=== PATIENT | male | born 1950 | race Caucasian/White ===

== ENCOUNTER 2017-12-14 09:49 | Inpatient (IN) | payer BC, OTHER ==
--- NOTE | 2017-12-14 09:59 | PDOC ---
History of Present Illness - General Chief Complaint: Nausea/Vomiting Stated Complaint: NAUSEA/VOMITING Time Seen by Provider: 12/14/17 09:58 History Source: Patient - History of Present Illness Initial Comments: 12/14/17 10:32 67 y.o. male with a PMH of aneursym (2004) BIBEMS vertigo. Patient's notes patient could not get out of bed this morning 10/27 to his vertigo prompting her to call 911. Patient states he feels as if both the room and he is spinning. Patient denies any associated chest pain, dyspnea, visual changes or AMS. Patient does endorse some associated lightheadedness. Of note, patient recieves his primary care at the [facility] and notes that he was treated for a UTI and a "prostate infection" last week with three day of IV antibiotics. Patient further notes a 6 month h/o weakness and 20 pound weight loss. ROS is positive for chills. NKDA Surgical: 10/27 to aneursym Social: denies cigarettes, denies alcohol, denies recreational drugs PMD: [facility] Past History - Past Medical History Allergies/Adverse Reactions: Allergies Allergy/AdvReac Type Severity Reaction Status Date / Time fosinopril AdvReac Verified 12/15/17 14:44 lisinopril AdvReac Verified 12/15/17 14:44 Home Medications: Ambulatory Orders Cholecalciferol (Vitamin D3) [Vitamin D3 -] 1,000 unit PO DAILY 12/15/17 Finasteride [Proscar -] 5 mg PO DAILY 12/15/17 Glipizide 10 mg PO BID 12/15/17 Hydrochlorothiazide [Hctz -] 12.5 mg PO DAILY 12/15/17 Losartan Potassium [Cozaar] 100 mg PO DAILY 12/15/17 Metformin HCl [Glucophage] 1,000 mg PO BID 12/15/17 Omeprazole 20 mg PO DAILY 12/15/17 Simvastatin [Zocor] 80 mg PO HS 12/15/17 Tamsulosin HCl [Flomax] 0.4 mg PO DAILY 12/15/17 COPD: No Diabetes: Yes HTN: Yes Other medical history: kidney infection, prostate enlarged - Suicide/Smoking/Psychosocial Hx Smoking History: Never smoked Review of Systems - Review of Systems Constitutional: No: Chills, Fever HEENTM: No: Recent change in vision Respiratory: No: Cough, Shortness of Breath Cardiac (ROS): No: Chest Pain, Edema, Lightheadedness, Palpitations, Syncope ABD/GI: No: Constipated, Diarrhea, Nausea, Vomiting, Abdominal cramping : No: Burning, Dysuria *Physical Exam - Vital Signs Last Vital Signs Temp Pulse Resp BP Pulse Ox 97.6 F 59 L 18 139/74 99 12/14/17 09:55 12/14/17 09:55 12/14/17 09:55 12/14/17 09:55 12/14/17 09:55 - Physical Exam General Appearance: Yes: Nourished, Obese HEENT: positive: EOMI, ADIEL. negative: TM Bulging, TM Dull, TM Erythema Neck: positive: Supple Respiratory/Chest: positive: Lungs Clear, Normal Breath Sounds Cardiovascular: positive: Regular Rhythm, S1, S2. negative: Edema, JVD, Murmur Gastrointestinal/Abdominal: positive: Normal Bowel Sounds, Soft. negative: Distended, Guarding, Rebound, Tenderness, Hernia, Mass Musculoskeletal: positive: Other. negative: Normal Inspection, CVA Tenderness ( R) Extremity: positive: Normal Capillary Refill Integumentary: positive: Normal Color, Dry, Warm Neurologic: positive: fundraising director II-XII NML intact, Fully Oriented, Alert, Motor Strength 5/5 ED Treatment Course - LABORATORY CBC & Chemistry Diagram: 12/15/17 07:30 12/15/17 07:30 Medical Decision Making - Medical Decision Making 12/14/17 21:51 67 y.o. male presents with vertigo that resolved during course of admission. CT Head negative for acute bleed. H/o recent prostate and urinary tract infections. UA significant for WBC 648 and Leukocyte Esterase 3+. Will administer broad spectrum abx and admit to inpatient medicine for further evaluation. *DC/Admit/Observation/Transfer Diagnosis at time of Disposition: UTI (urinary tract infection) - Discharge Dispostion Admit: Yes - Referrals - Patient Instructions - Post Discharge Activity
[2017-12-14 10:34] LABS: BASO % 0.5 % (0-2.0); EOS % 0.6 % (0-4.5); HEMATOCRIT 30.5 % (35.4-49); HEMOGLOBIN 10.4 GM/dL (11.7-16.9); LYMPH % 5.6 % (8-40); MCH 28.2 pg (25.7-33.7); MEAN PLT VOLUME 7.2 fl (7.5-11.1); MONO % 4.7 % (3.8-10.2); NEUT % 88.6 % (42.8-82.8); PLATELET COUNT 419 K/MM3 (134-434); RBC 3.67 M/mm3 (4.00-5.60); WHITE BLOOD COUNT 9.7 K/mm3 (4.0-10.0)
--- NOTE | 2017-12-14 10:40 | PDOC ---
Attending Attestation - HPI HPI: 12/14/17 12:32 The patient is a 67 year old male with a significant PMH of persistent UTI since September, HTN, DM, and aneursym (2004) who was brought in by EMS to the emergency department s/p vertiginous symptoms this morning. The patient's is at bedside and providing history. The patient reports he was unable to get out of the bed this morning because he felt 'the room was spinning.' The patient reports a similar vertiginous episode approximately 5 years ago. The patient is also complaining of difficulty urinating since September. The patient states he was seen at the [facility] and a urologist who told him he had a UTI and prescribed him antibiotics. Of note, the patient reports 20 lb unintended weight loss. The patient denies chest pain, shortness of breath, headache and dizziness. Denies fever, nausea, vomit, diarrhea and constipation. Denies frequency, urgency and hematuria. Allergies: NKA Past surgical history: shunt and coil 2/2 anuerysm Social history: No reported alcohol, drug or cigarette use. PCP: [facility] <Maddison Holland - Last Filed: 12/14/17 12:40> - Resident Resident Name: Gladys Rider - ED Attending Attestation I have performed the following: I have examined & evaluated the patient, The case was reviewed & discussed with the resident, I agree w/resident's findings & plan, Exceptions are as noted - Physicial Exam PE: GENERAL: Awake, alert, and fully oriented, in no acute distress HEAD: No signs of trauma. 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 EYES: PERRLA, EOMI, sclera anicteric, conjunctiva clear ENT: Auricles normal inspection, hearing grossly normal, nares patent, oropharynx clear without exudates. Moist mucosa NECK: Normal ROM, supple, no lymphadenopathy, JVD, or masses LUNGS: Breath sounds equal, clear to auscultation bilaterally. No wheezes, and no crackles HEART: Regular rate and rhythm, normal S1 and S2, no murmurs, rubs or gallops ABDOMEN: Soft, +suprapubic tenderness, normoactive bowel sounds. No guarding, no rebound. No masses EXTREMITIES: Normal range of motion, no edema. No clubbing or cyanosis. No cords, erythema, or tenderness NEUROLOGICAL: Cranial nerves II through XII grossly intact. Normal speech. Motor and sensation intact. SKIN: Warm, Dry, normal turgor, no rashes or lesions noted. - Medical Decision Making Pt with recent history of persistent UTI since September, presenting with vertiginous symptoms this morning. 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 CTH obtained, no acute findings. Will obtain UA/UCx, BCx. Likely admission. <Marisol Hanson - Last Filed: 12/14/17 17:55>
[2017-12-14 11:01] LABS: ALBUMIN 3.3 g/dl (3.4-5.0); ANION GAP 6 (8-16); BILIRUBIN,TOTAL 0.7 mg/dL (0.2-1.0); BLOOD UREA NITROGEN 18 mg/dL (7-18); CALCIUM 9.2 mg/dL (8.5-10.1); CHLORIDE 105 mmol/L (98-107); CO2 29 mmol/L (21-32); GLUCOSE,RANDOM 255 mg/dL (74-106); LIPASE 168 U/L (73-393); MAGNESIUM 2.1 mg/dL (1.8-2.4); POTASSIUM 4.1 mmol/L (3.5-5.1); SGOT/AST 18 U/L (15-37); SGPT/ALT 59 U/L (12-78); SODIUM 140 mmol/L (136-145); TOT PROT 6.9 g/dl (6.4-8.2)
[2017-12-14 11:02] LABS: ALK PHOS 282 U/L (45-117)
[2017-12-14 12:08] LABS: URINE APPEARANCE CLOUDY; URINE BILIRUBIN NEGATIVE (NEGATIVE); URINE BLOOD 2+ (NEGATIVE); URINE COLOR YELLOW; URINE GLUCOSE (UA) 1+ (NEGATIVE); URINE KETONE 2+ (NEGATIVE); URINE NITRITE POSITIVE (NEGATIVE); URINE UROBILINOGEN NEGATIVE mg/dL (0.2-1.0)
[2017-12-14 12:10] LABS: URINE LEUK ESTERASE 3+ (NEGATIVE); URINE PROTEIN 2+ (NEGATIVE)
[2017-12-14 12:14] LABS: URINE BACTERIA MANY /hpf (NONE SEEN); URINE MUCUS FEW
[2017-12-14] MEDS ORDERED: VANCOMYCIN 1,000 MG in DEXTROSE 5%-WATER - 250 ML IVPB ONE (12:49)
[2017-12-14] MEDS ORDERED: PIPERACIL/TAZOB 3.375 GM 3.375 GM/50 ML PREMIX IVPB ONE ×2 (12:50→13:57)
--- NOTE | 2017-12-14 12:51 | HP ---
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 This morning about an hour after waking up, immediately after standing up from sitting, he felt hot , diaphoretic and "like the room was spinning". dizzy/spinning sensation would stop when he closed his eyees. he lied down and symptoms persisted for 1 hr until spontaneous resolution. Patient had a similar episode several yars ago that was self limited. He states that he gets positional dizziness since his brain surgery. For the past month and a half he has been suffering from prostatitis an has been restricting his fluid intake in an attempt to alleviate frequent nocturnal urination. he was [facility] in [place] [facility] [place] for [place] abx followed by a 5 day course of PO abx. he continued to have symptoms and was prescribed a 10 day course of another abx which he finished last . He complains of suprapubic pain, frequency and incomplete emptying but no dysuria or fever. he also reports some weight loss due to poor appetite secondary to nausea ever since he has been on abx as well as transient diarrhea. his last colonoscopy was 10 yrs ago, 1 polyp removed, told to repeat in 10 yrs. Last a1c was 9, 6 mo ago. He denies c/p sob, h.a, weakness/numbness, constipation, melena, hematochezia. ER course was notable for: (1)labs (2)cxr head ct (3)[facility] Recent Travel: denies PAST MEDICAL HISTORY: as above PAST SURGICAL HISTORY:as above Social History: lives with Smoking:denies Alcohol:denies Drugs: denies Family History: Allergies No Known Allergies Allergy (Verified 12/14/17 10:17) HOME MEDICATIONS: Home Medications Medication Instructions Recorded Unobtainable [Unobtainable] 12/14/17 REVIEW OF SYSTEMS CONSTITUTIONAL: Absent: fever HEENT: Absent: rhinorrhea, nasal congestion, throat pain CARDIOVASCULAR: Absent: chest pain, syncope, palpitations RESPIRATORY: Absent: cough, shortness of breath GASTROINTESTINAL: Absent: abdominal distension, vomiting, constipation, melena, hematochezia GENITOURINARY: Absent: dysuria, hematuria, flank pain MUSCULOSKELETAL: Absent: myalgia, arthralgia SKIN: Absent: rash, itching, pallor HEMATOLOGIC/IMMUNOLOGIC: Absent:frequent infections ENDOCRINE: Absent: heat intolerance, cold intolerance NEUROLOGIC: Absent: headache, focal weakness or paresthesias PSYCHIATRIC: Absent: anxiety, depression PHYSICAL EXAMINATION Vital Signs - 24 hr 12/14/17 12/14/17 12/14/17 09:55 10:28 10:40 Temperature 97.6 F 97.1 F L Pulse Rate 59 L Pulse Rate [ Left Radial] Respiratory 18 Rate Blood Pressure 139/74 Blood Pressure [Left Arm] O2 Sat by Pulse 99 97 Oximetry (%) 12/14/17 11:38 Temperature Pulse Rate Pulse Rate [ 56 L Left Radial] Respiratory 22 Rate Blood Pressure Blood Pressure 128/67 [Left Arm] O2 Sat by Pulse 98 Oximetry (%) GENERAL: Awake, alert, and fully oriented, in no acute distress. HEAD: Normal with no signs of trauma. EYES: Pupils equal, round and reactive to light, extraocular movements intact, sclera anicteric, conjunctiva clear. No lid lag. EARS, NOSE, THROAT: Moist mucous membranes. b/l hearing aids, clear tympanic membranes. dhruv hallpike negative. NECK: supple LUNGS: Breath sounds equal, clear to auscultation bilaterally. HEART: Regular rate and rhythm, normal S1 and S2 ABDOMEN: Soft, slightly tender suprapubic area, not distended, normoactive bowel sounds, no guarding, no rebound, no masses. ROX: boggy, enlarged tender prostate MUSCULOSKELETAL:No CVA tenderness. UPPER EXTREMITIES: 2+ pulses, warm, well-perfused. No cyanosis. No clubbing. No peripheral edema. LOWER EXTREMITIES: 2+ pulses, warm, well-perfused. No calf tenderness. No peripheral edema. NEUROLOGICAL: Cranial nerves II-XII intact. strength 5/5 in all extremities, 1 + erflexes patellar and bicep, sensation intact b/l. Normal speech. slightly slowed cognition PSYCHIATRIC: Cooperative. Good eye contact. Appropriate mood and affect. SKIN: Warm, dry, decreased turgor. appears dry Laboratory Results - last 24 hr 12/14/17 12/14/17 12/14/17 10:20 10:20 10:20 WBC 9.7 RBC 3.67 L Hgb 10.4 L Hct 30.5 L MCV 83.0 MCH 28.2 MCHC 34.0 RDW 14.0 Plt Count 419 MPV 7.2 L Neutrophils % 88.6 H Lymphocytes % 5.6 L Monocytes % 4.7 Eosinophils % 0.6 Basophils % 0.5 Sodium 140 Potassium 4.1 Chloride 105 Carbon Dioxide 29 Anion Gap 6 L BUN 18 Creatinine 1.0 Creat Clearance w eGFR > 60 Random Glucose 255 H Lactic Acid 1.0 Calcium 9.2 Magnesium 2.1 Total Bilirubin 0.7 AST 18 ALT 59 Alkaline Phosphatase 282 H Creatine Kinase Troponin I Total Protein 6.9 Albumin 3.3 L Lipase 168 Urine Color Urine Appearance Urine pH Ur Specific [place] Urine Protein Urine Glucose (UA) Urine Ketones Urine Blood Urine Nitrite Urine Bilirubin Urine Urobilinogen Ur Leukocyte Esterase Urine WBC (Auto) Urine RBC (Auto) Urine Bacteria Urine Mucus 12/14/17 12/14/17 10:20 12:00 WBC RBC Hgb Hct MCV MCH MCHC RDW Plt Count MPV Neutrophils % Lymphocytes % Monocytes % Eosinophils % Basophils % Sodium Potassium Chloride Carbon Dioxide Anion Gap BUN Creatinine Creat Clearance w eGFR Random Glucose Lactic Acid Calcium Magnesium Total Bilirubin AST ALT Alkaline Phosphatase Creatine Kinase 31 L Troponin I < 0.02 Total Protein Albumin Lipase Urine Color Yellow Urine Appearance Cloudy Urine pH 5.0 Ur Specific [place] 1.016 Urine Protein 2+ H Urine Glucose (UA) 1+ H Urine Ketones 2+ H Urine Blood 2+ H Urine Nitrite Positive Urine Bilirubin Negative Urine Urobilinogen Negative Ur Leukocyte Esterase 3+ H Urine WBC (Auto) 648 Urine RBC (Auto) 126 Urine Bacteria Many Urine Mucus Few ASSESSMENT/PLAN: This is a 67 yo M with 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 Dizziness, likely Orthostatic -history of water restriction, infection -Ct head unremarkable for acute pathology although part of brain obstructed by could artifact, very low suspicion for neurologic sequale. -dhruv hallpike negative -f/u orthostatic vital signs -NS @ 100 UTI/prostatitits -painful enlarged prostate -f/u urine, blood cultures -IV rocephin -[facility]/abx used -prostate/bladder us r/o abscess -flomax NIDDM -hold PO agents -BGM ISS Hep sq Dispo: adm m/s Problem List - Problem (1) NIDDY (non-insulin dependent diabetes mellitus in young) Code(s): E13.9 - OTHER SPECIFIED DIABETES MELLITUS WITHOUT COMPLICATIONS (2) Prostatitis Code(s): N41.9 - INFLAMMATORY DISEASE OF PROSTATE, UNSPECIFIED (3) UTI (urinary tract infection) Code(s): N39.0 - URINARY TRACT INFECTION, SITE NOT SPECIFIED (4) Complicated UTI (urinary tract infection) Code(s): N39.0 - URINARY TRACT INFECTION, SITE NOT SPECIFIED (5) HTN (hypertension) Code(s): I10 - ESSENTIAL (PRIMARY) HYPERTENSION (6) BPH (benign prostatic hyperplasia) Code(s): N40.0 - BENIGN PROSTATIC HYPERPLASIA WITHOUT LOWER URINRY TRACT SYMP Visit type - Emergency Visit Emergency Visit: Yes ED Registration Date: 12/14/17 Care time: The patient presented to the Emergency Department on the above date and was hospitalized for further evaluation of their emergent condition. - New Patient This patient is new to me today: Yes Date on this admission: 12/14/17 - Critical Care Critical Care patient: No
[2017-12-14] MEDS ORDERED: VANCOMYCIN 1 GRAM (PRE-DOCKED) 1,000 MG/250 ML BAG IVPB ONE (13:15)
[2017-12-14] MEDS ORDERED: PIPERACILLIN/TAZOB 3.375 GM 3.375 GM/50 ML BAG IVPB ONE (13:21)
[2017-12-14] MEDS: SODIUM CHLORIDE 1,000 ML IV SCH (14:26)
--- NOTE | 2017-12-14 14:34 | EKG ---
Test Reason : Blood Pressure : / mmHG Vent. Rate : 056 BPM Atrial Rate : 056 BPM P-R Int : 174 ms QRS Dur : 104 ms QT Int : 414 ms P-R-T Axes : 041 028 011 degrees QTc Int : 399 ms SINUS BRADYCARDIA OTHERWISE NORMAL ECG NO PREVIOUS ECGS AVAILABLE Confirmed by KARINA ESPOSITO MD ([id number]) on 12/14/2017 2:34:04 PM Referred By: Confirmed By:KARINA ESPOSITO MD
[2017-12-14] MEDS ORDERED: CEFTRIAXONE 1 GM in DEXTROSE 5%-WATER - 50 ML IVPB SCH (15:00)
--- NOTE | 2017-12-14 15:25 | PN ---
Teaching Attending Note Name of Resident: Herrera Campos ATTENDING PHYSICIAN STATEMENT I saw and evaluated the patient. I reviewed the resident's note and discussed the case with the resident. I agree with the resident's findings and plan as documented. 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 he was admitted to [place] ER in nov 12 for fatigue and was found to have UTI, given IV abx in ER and sent home on 3 day course of POabx. HE visited his urologist after that and repeat urine studies were done , he was called later and was prescribed 10 day course of abx which he finished a week ago. he now cont to feel tired, he experienced subjective fevers, and chills. he vomited this am . no abd pain, no dysuria , but has discomfort in lower abd with urination. He has BPH and urinates at night , so he has been trying to avoid fluid intake. he feels thirsty and dry . He lost weight in past 2 months due to decreased appetite. Unfortunately, he does not remember the names of any of the Abx he received. today he felt Dizzy ( room spinning) , while getting up form his chair , along with diaphoresis, and minimal shaking /tremor that improved when he lied down and resolved when he got to ER. He denies any weakness, numbness, tingling, change in vision , or dysphagia . He has no dizziness now. OBJECTIVE: NAD, VS reviewed. HEENT: MMM, EOMI, round equal pupils , reactive tolight , no LAP in neck no JVD. CV: RRR, no MRG lungs: CTAB ext: no edema Abd; soft, ND, minimal tenderness in suprapubic area with no CVA tenderness , no rebound tenderness or quarding. Neuro: EOMI, round equal pupils , reactive to light , no facial droop, tongue and uvula at mid oh e. nl facial sensation . strength 5/5 in upper nad lower ext proximally and distally. NL nose to finger . reflexes 2+ knee jerk , 1+ biceps B/l Rectal: done by Criminal Records Technician: enlarged soft prostate with tenderness. 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 unfortunately no previous cx or information about previous treatments. has prostate tenderness on rectal exam but no fluctuation. Not sure if has recurrent infection or partially treated persistent infection due to abscess or short duration of treatment No evidence of pyelonephritis on exam, and has no fever/leukocytosis - received vanco and zosyn in ER - will give Ceftriaxone. No need to cover MRSA and/or pseudomonas unless current cx or previous cx shows so - [facility] [place] [facility] ( U cx , treatment hx, and nay procedures/labs ) - follow urine and blood cx drawn in ER - Transrectal US to r/o abscess given tenderness on exam and 2 month history of UTI treatment . 2- HTN: will bring his med list 3- Dm : hold metformin and glipizide and start SSI 4- Dizziness/vertigo: Neg EVI Riggs neuro exam, happened with changing position form sitting to standing in the setting of UTI, vomiting, and poor po intake indicating orthostatic hypotension from volume depletion. - CT scan reviewed. 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 - f/u with his neuro surgeon Dispo : HLOC due to being on 2 courses of Po abx as out pt, and possible prostatitis
[2017-12-14 15:57] VITALS: BMI 28.9
[2017-12-14] MEDS ORDERED: INSULIN SLIDING SCALE (NOVOLOG) 1 VIAL SQ SCH (16:30)
[2017-12-14] MEDS: INSULIN SLIDING SCALE (NOVOLOG) 1 VIAL SQ SCH (17:15)
--- NOTE | 2017-12-14 19:23 | HP ---
CHIEF COMPLAINT: dizziness PCP: Dr. Delma Russell ([facility]) HISTORY OF PRESENT ILLNESS: Patient is a poor historian and history obtained with the help of his at bedside. 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 The patient has had a UTI for approximately the past month. He was initially treated with inpatient IV antibiotics, then with 5 days of outpatient antibiotics. After the outpatient course, he continued to experience symptoms and returned to his doctor, receiving a 10 day course of a different antibiotic which he finished last . He cannot remember the names of the antibiotics he received. This morning, 1 hour after waking up, the patient experienced an acute onset of dizziness, sweating and shaking chills. He discribed his dizziness episode as feeling unstable. He only felt this sensation when his eyes were open. He was helped to his bed by his , who called 911. This episode lasted approximately 1 hour before resolving spontaneously. The patient had a similar episode of dizziness alone 5 years ago which was treated at the [facility]. He is unable to remember his diagnosis at that time. The patient also complains of a 1 month history of nausea, causing him to have decreased PO intake and to lose weight. The patient endorses urinary hesitancy, urgency and frequency, but no dysuria. He has been restricting his water intake in order to treat his urgency. Patient denies CHest pain, SOB, abdominal pain, fevers at home, recent travel or sick contacts. Patient follows at the [facility] for all of his medical care. ER course was notable for: (1) UA w/ 2+ketones, 2+blood, +nitrite, 3+leukocyte esterase, 648 WBC and many bacteria. (2) CXR negative for acute pathology (3) CT head showing previous coil from aneurysm repair w/ KINDERGARTEN TEACHER ASSISTANT shunt and shrunken ventricles c/w possible overshunting. 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 Quit 20 years ago Alcohol: denies Drugs: denies recent drug use. Patient has never used IV drugs Family History: Diabetes in both mother and father. Allergies No Known Allergies Allergy (Verified 12/14/17 10:17) HOME MEDICATIONS: Home Medications Medication Instructions Recorded Unobtainable [Unobtainable] 12/14/17 REVIEW OF SYSTEMS CONSTITUTIONAL: Absent: loss of appetite HEENT: Absent: rhinorrhea, nasal congestion, throat pain, throat swelling, difficulty swallowing, mouth swelling, ear pain, eye pain, visual changes CARDIOVASCULAR: Absent: chest pain, syncope, palpitations, irregular heart rate, lightheadedness , peripheral edema RESPIRATORY: Absent: cough, shortness of breath, dyspnea with exertion, orthopnea, wheezing, stridor, hemoptysis GASTROINTESTINAL: Absent: abdominal pain, abdominal distension, vomiting, melena, hematochezia GENITOURINARY: Absent: dysuria, hematuria, flank pain, genital pain MUSCULOSKELETAL: Absent: myalgia, arthralgia, joint swelling, back pain, neck pain SKIN: Absent: rash, itching, pallor HEMATOLOGIC/IMMUNOLOGIC: Absent: easy bleeding, easy bruising, lymphadenopathy, frequent infections ENDOCRINE: Absent: unexplained weight gain, unexplained weight loss, heat intolerance, cold intolerance NEUROLOGIC: Absent: headache, focal weakness or paresthesias, unsteady gait, seizure, mental status changes, bladder or bowel incontinence PSYCHIATRIC: Absent: anxiety, depression, suicidal or homicidal ideation, hallucinations. PHYSICAL EXAMINATION Vital Signs - 24 hr 12/14/17 12/14/17 12/14/17 09:55 10:28 10:40 Temperature 97.6 F 97.1 F L Pulse Rate 59 L Pulse Rate [ Left Radial] Pulse Rate [ Right side Sitting] Pulse Rate [ Right side Standing] Pulse Rate [ Right side Supine] Respiratory 18 Rate Blood Pressure 139/74 Blood Pressure [Left Arm] Blood Pressure [Right side Sitting] Blood Pressure [Right side Standing] Blood Pressure [Right side Supine] O2 Sat by Pulse 99 97 Oximetry (%) 12/14/17 12/14/17 12/14/17 11:38 14:30 15:35 Temperature Pulse Rate Pulse Rate [ 56 L 88 Left Radial] Pulse Rate [ 80 Right side Sitting] Pulse Rate [ 91 H Right side Standing] Pulse Rate [ 71 Right side Supine] Respiratory 22 20 Rate Blood Pressure Blood Pressure 128/67 116/66 [Left Arm] Blood Pressure 122/71 [Right side Sitting] Blood Pressure 124/70 [Right side Standing] Blood Pressure 126/66 [Right side Supine] O2 Sat by Pulse 98 100 Oximetry (%) 12/14/17 12/14/17 15:43 16:01 Temperature 98.2 F Pulse Rate 80 Pulse Rate [ Left Radial] Pulse Rate [ Right side Sitting] Pulse Rate [ Right side Standing] Pulse Rate [ Right side Supine] Respiratory 20 Rate Blood Pressure 122/71 Blood Pressure [Left Arm] Blood Pressure [Right side Sitting] Blood Pressure [Right side Standing] Blood Pressure [Right side Supine] O2 Sat by Pulse 100 Oximetry (%) GENERAL: Awake, alert, and fully oriented, in no acute distress. Patient has difficulty remembering recent events and his thought process while answering questions is delayed. Answers all questions appropriately. Patient appears volume depleted. He describes dry mouth and asks for water. HEAD: Normal with no signs of trauma. EYES: Pupils equal, round and reactive to light, extraocular movements intact, sclera anicteric, conjunctiva clear. No lid lag. EARS, NOSE, THROAT: Ears normal, nares patent, oropharynx clear without exudates. moist mucous membranes. NECK: Normal range of motion, supple without lymphadenopathy, JVD, or masses. LUNGS: Breath sounds equal, clear to auscultation bilaterally. No wheezes, and no crackles. No accessory muscle use. HEART: Regular rate and rhythm, normal S1 and S2 without murmur, rub or gallop. ABDOMEN: Soft, not distended, normoactive bowel sounds, no guarding, no rebound , no masses. No hepatomegaly or splenomegaly. There is suprapubic tenderness. The patient is also tender in the left upper and lower quadrant. Bladder can be palpated and feels distended. No CVA tenderness. RECTAL: External hemorrhoids visualized. Good rectal tone. The prostate is enlarged, smooth and tender to palpation. No hugh blood in the rectal vault. LOWER EXTREMITIES: 2+ pulses, warm, well-perfused. No calf tenderness. No peripheral edema. NEUROLOGICAL: Cranial nerves II-X intact. Normal speech. Strength 5/5 b/l in both upper and lower limbs. Reflexes 1+ at knee and biceps. Sutherland-Hallpike maneuver fails to reproduce dizziness. Sitting up quickly during maneuver elicits dizziness. SKIN: Warm, dry, normal turgor, no rashes or lesions noted, normal capillary refill. Laboratory Results - last 24 hr 12/14/17 12/14/1712/14/18 10:20 10:20 10:20 WBC 9.7 RBC 3.67 L Hgb 10.4 L Hct 30.5 L MCV 83.0 MCH 28.2 MCHC 34.0 RDW 14.0 Plt Count 419 MPV 7.2 L Neutrophils % 88.6 H Lymphocytes % 5.6 L Monocytes % 4.7 Eosinophils % 0.6 Basophils % 0.5 Sodium 140 Potassium 4.1 Chloride 105 Carbon Dioxide 29 Anion Gap 6 L BUN 18 Creatinine 1.0 Creat Clearance w eGFR > 60 POC Glucometer Random Glucose 255 H Lactic Acid 1.0 Calcium 9.2 Magnesium 2.1 Total Bilirubin 0.7 AST 18 ALT 59 Alkaline Phosphatase 282 H Creatine Kinase Troponin I Total Protein 6.9 Albumin 3.3 L Lipase 168 Urine Color Urine Appearance Urine pH Ur Specific [place] Urine Protein Urine Glucose (UA) Urine Ketones Urine Blood Urine Nitrite Urine Bilirubin Urine Urobilinogen Ur Leukocyte Esterase Urine WBC (Auto) Urine RBC (Auto) Urine Bacteria Urine Mucus 12/14/17 12/14/17 12/14/17 10:20 12:00 16:50 WBC RBC Hgb Hct MCV MCH MCHC RDW Plt Count MPV Neutrophils % Lymphocytes % Monocytes % Eosinophils % Basophils % Sodium Potassium Chloride Carbon Dioxide Anion Gap BUN Creatinine Creat Clearance w eGFR POC Glucometer 235 Random Glucose Lactic Acid Calcium Magnesium Total Bilirubin AST ALT Alkaline Phosphatase Creatine Kinase 31 L Troponin I < 0.02 Total Protein Albumin Lipase Urine Color Yellow Urine Appearance Cloudy Urine pH 5.0 Ur Specific [place] 1.016 Urine Protein 2+ H Urine Glucose (UA) 1+ H Urine Ketones 2+ H Urine Blood 2+ H Urine Nitrite Positive Urine Bilirubin Negative Urine Urobilinogen Negative Ur Leukocyte Esterase 3+ H Urine WBC (Auto) 648 Urine RBC (Auto) 126 Urine Bacteria Many Urine Mucus Few ASSESSMENT/PLAN: The patient is a 67 yo m w/ PMH refractory UTI and DM who is being admitted for treatment and further workup of UTI and dizziness. #Dizziness likely 2/2 orthostatic hypotension -orthostatic vital signs -IVF -monitor symptoms #Refractory UTI w/ prostate enlargement/tenderness -s/p Vancomycin, Zosyn in ED -exact antibiotic history and timing unclear; will reach out to [facility] for records -Ceftriaxone 1gm daily beginning this PM -Flomax -f/u BCX -f/u UCX -transabdominal ultrasound of the prostate r/o abscess #DM -BGM ACHS -ISS ACHS #HTN -normotensive at this time. -home meds unknown; patient uses [facility] pharmacy -placed call to [facility]; they will not release records until formal consent and request made. -filed request, will f/u #FEN -NS @ 100 -lytes WNL -diabetic/sodium controlled diet #Prophy -Hep SQ 5Ku TID #Dispo -Admit to med-surg Problem List - Problem (1) Diabetes mellitus Code(s): E11.9 - TYPE 2 DIABETES MELLITUS WITHOUT COMPLICATIONS Qualifiers: Diabetes mellitus type: type 2 Diabetes mellitus complication status: without complication (2) BPH (benign prostatic hyperplasia) Code(s): N40.0 - BENIGN PROSTATIC HYPERPLASIA WITHOUT LOWER URINRY TRACT SYMP Qualifiers: Lower urinary tract symptom presence: symptoms present Lower urinary tract symptom detail: urinary frequency Qualified Code(s): N40.1 - Benign prostatic hyperplasia with lower urinary tract symptoms; R35.0 - Frequency of micturition ; R35.0 - Frequency of micturition (3) Complicated UTI (urinary tract infection) Code(s): N39.0 - URINARY TRACT INFECTION, SITE NOT SPECIFIED (4) HTN (hypertension) Code(s): I10 - ESSENTIAL (PRIMARY) HYPERTENSION Visit type - Emergency Visit Emergency Visit: Yes ED Registration Date: 12/14/17 Care time: The patient presented to the Emergency Department on the above date and was hospitalized for further evaluation of their emergent condition. - New Patient This patient is new to me today: Yes Date on this admission: 12/14/17 - Critical Care Critical Care patient: No Hospitalist Screening - Colonoscopy Questionnaire Colonoscopy Questionnaire: Colonoscopy Questionnaire - Patient: 50 - 75 years old and never had a screening colonoscopy: No History of colon or rectal polyps, or CA: Yes History of IBD, Crohn's disease or UC: No History of abdominal radiation therapy as a child: No - Relative: 1 with colon or rectal CA, or polyps at age 60 or younger: No Colon or rectal CA diagnosed at age 45 or younger: No Multiple relatives with colon or rectal CA: No - Outcome: Screening Result: Positive Screen
[2017-12-14] MEDS ORDERED: CEFTRIAXONE 1 GM in DEXTROSE 5%-WATER - 50 ML IVPB ONE (20:00)
[2017-12-14] MEDS ORDERED: cefTRIAXone SODIUM 1 GM VIAL ONE (20:42)
[2017-12-14] MEDS ORDERED: DEXTROSE 5%-WATER - 50 ML IVPB ONE (20:44)
[2017-12-14] MEDS: HEPARIN NA (PORCINE) 5,000 UNITS/ML 1ML VIAL SQ SCH (21:14)
[2017-12-15] MEDS: HEPARIN NA (PORCINE) 5,000 UNITS/ML 1ML VIAL SQ SCH ×3 (06:11→21:10)
[2017-12-15] MEDS: INSULIN SLIDING SCALE (NOVOLOG) 1 VIAL SQ SCH ×3 (06:11→17:16)
[2017-12-15] MEDS: TAMSULOSIN HCL 0.4 MG CAP.ER.24H (FP) PO SCH (08:08)
[2017-12-15 08:20] LABS: BASO % 0.5 % (0-2.0); EOS % 1.5 % (0-4.5); HEMATOCRIT 29.7 % (35.4-49); HEMOGLOBIN 10.1 GM/dL (11.7-16.9); LYMPH % 9.1 % (8-40); MCH 28.1 pg (25.7-33.7); MEAN CELL VOLUME 82.7 fl (80-96); MEAN PLT VOLUME 7.2 fl (7.5-11.1); MONO % 5.9 % (3.8-10.2); PLATELET COUNT 392 K/MM3 (134-434); RBC 3.59 M/mm3 (4.00-5.60); RDW 13.9 % (11.9-15.9); WHITE BLOOD COUNT 9.2 K/mm3 (4.0-10.0)
[2017-12-15 08:55] LABS: CHLORIDE 105 mmol/L (98-107); POTASSIUM 4.1 mmol/L (3.5-5.1); SODIUM 141 mmol/L (136-145)
[2017-12-15 09:05] LABS: ALK PHOS 226 U/L (45-117); ANION GAP 7 (8-16); BILIRUBIN,TOTAL 0.4 mg/dL (0.2-1.0); BLOOD UREA NITROGEN 13 mg/dL (7-18); CALCIUM 8.6 mg/dL (8.5-10.1); CO2 29 mmol/L (21-32); GLUCOSE,RANDOM 154 mg/dL (74-106); MAGNESIUM 2.1 mg/dL (1.8-2.4); PHOSPHOROUS 3.1 mg/dL (2.5-4.9); SGOT/AST 24 U/L (15-37); SGPT/ALT 48 U/L (12-78); TOT PROT 6.3 g/dl (6.4-8.2)
[2017-12-15] MEDS ORDERED: PT OWN MED DRAWER 7, Y5N ONE (10:01)
[2017-12-15] MEDS: CEFTRIAXONE 2 GM in DEXTROSE 5%-WATER - 100 ML IVPB SCH (10:10)
--- NOTE | 2017-12-15 14:20 | PN ---
Teaching Attending Note Name of Resident: Gabrielle Good ATTENDING PHYSICIAN STATEMENT I saw and evaluated the patient. I reviewed the resident's note and discussed the case with the resident. I agree with the resident's findings and plan as documented. SUBJECTIVE: No fever or chills. has no abd pain, has no . 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 ? passed a stone this am . - cont cecftriaxone - await blood and urine cx - US reviwed . - [facility] . - cont IVF will stop in am 2- HTN: will bring his med list 3- DM : hold metformin and glipizide and start SSI 4- Dizziness/vertigo:resolved, no orthostatic hypotension . 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
[2017-12-15] MEDS: SODIUM CHLORIDE 1,000 ML IV SCH ×2 (14:39→19:13)
--- NOTE | 2017-12-15 16:29 | PN ---
Physical Exam: SUBJECTIVE: Patient seen and examined ; states passed "stone" after urinating last night; stated was corn size; pink; after passing of substance he states his dysuria was gone. NO fevers, chills, urine yellow and clear. OBJECTIVE: Vital Signs Period Temp Pulse Resp BP Sys/[place] Pulse Ox Last 24 Hr 98 F-98.5 F 61-78 18-20 104-126/58-77 98-98 GENERAL: The patient is awake, alert, and fully oriented, in no acute distress. LUNGS: Breath sounds equal, clear to auscultation bilaterally, no wheezes, no crackles, no accessory muscle use. HEART: Regular rate and rhythm, S1, S2 without murmur, rub or gallop. ABDOMEN: Soft, nontender, nondistended, normoactive bowel sounds, no guarding, no rebound, no hepatosplenomegaly, no masses. EXTREMITIES: 2+ pulses, warm, well-perfused, no edema. Laboratory Results - last 24 hr 12/14/17 12/15/17 12/15/17 16:50 06:09 07:30 WBC 9.2 RBC 3.59 L Hgb 10.1 L Hct 29.7 L MCV 82.7 MCH 28.1 MCHC 34.0 RDW 13.9 Plt Count 392 MPV 7.2 L Neutrophils % 83.0 H Lymphocytes % 9.1 D Monocytes % 5.9 Eosinophils % 1.5 D Basophils % 0.5 Sodium Potassium Chloride Carbon Dioxide Anion Gap BUN Creatinine Creat Clearance w eGFR POC Glucometer 235 175 Random Glucose Calcium Phosphorus Magnesium Total Bilirubin AST ALT Alkaline Phosphatase Total Protein Albumin 12/15/17 12/15/17 07:30 11:32 WBC RBC Hgb Hct MCV MCH MCHC RDW Plt Count MPV Neutrophils % Lymphocytes % Monocytes % Eosinophils % Basophils % Sodium 141 Potassium 4.1 Chloride 105 Carbon Dioxide 29 Anion Gap 7 L BUN 13 D Creatinine 1.0 Creat Clearance w eGFR > 60 POC Glucometer 234 Random Glucose 154 H D Calcium 8.6 Phosphorus 3.1 Magnesium 2.1 Total Bilirubin 0.4 D AST 24 D ALT 48 Alkaline Phosphatase 226 H Total Protein 6.3 L Albumin 3.0 L Active Medications Generic Name Dose Route Start Last Admin Trade Name Freq PRN Reason Stop Dose Admin Heparin Sodium (Porcine) 5,000 unit 12/14/17 22:00 12/15/17 14:39 Heparin - SQ 5,000 unit TID MIO Administration Sodium Chloride 1,000 mls @ 100 mls/hr 12/14/17 14:15 12/15/17 14:39 Normal Saline - IV 100 mls/hr ASDIR MIO Administration Ceftriaxone Sodium 2 gm/ 100 mls @ 200 mls/hr 12/15/17 10:00 12/15/17 10:10 Dextrose IVPB 200 mls/hr DAILY MIO Administration Insulin Aspart 1 vial 12/14/17 16:30 12/15/17 11:43 Novolog Vial Sliding Scale - SQ 4 units TIDAC MIO Administration Protocol Tamsulosin HCl 0.4 mg 12/15/17 08:30 12/15/17 08:08 Flomax - PO 0.4 mg DAILY@0830 MIO Administration ASSESSMENT/PLAN: This is a 67 year old male who presented with dizziness was founf to have complicated UTI. 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 Aj Good- PGY2 Visit type - Emergency Visit Emergency Visit: Yes ED Registration Date: 12/14/17 Care time: The patient presented to the Emergency Department on the above date and was hospitalized for further evaluation of their emergent condition. - New Patient This patient is new to me today: Yes Date on this admission: 12/15/17 - Critical Care Critical Care patient: No
[2017-12-16] MEDS: HEPARIN NA (PORCINE) 5,000 UNITS/ML 1ML VIAL SQ SCH ×2 (05:52→13:08)
[2017-12-16] MEDS: SODIUM CHLORIDE 1,000 ML IV SCH (05:54)
[2017-12-16] MEDS: INSULIN SLIDING SCALE (NOVOLOG) 1 VIAL SQ SCH ×3 (06:27→17:09)
[2017-12-16 08:07] LABS: BASO % 0.4 % (0-2.0); EOS % 2.1 % (0-4.5); HEMATOCRIT 28.7 % (35.4-49); HEMOGLOBIN 9.9 GM/dL (11.7-16.9); LYMPH % 10.1 % (8-40); MCH 28.7 pg (25.7-33.7); MCHC 34.4 g/dl (32.0-35.9); MEAN CELL VOLUME 83.4 fl (80-96); MEAN PLT VOLUME 7.1 fl (7.5-11.1); MONO % 7.2 % (3.8-10.2); NEUT % 80.2 % (42.8-82.8); PLATELET COUNT 401 K/MM3 (134-434); RBC 3.44 M/mm3 (4.00-5.60); RDW 14.2 % (11.9-15.9); WHITE BLOOD COUNT 8.1 K/mm3 (4.0-10.0)
[2017-12-16 08:48] LABS: CHLORIDE 107 mmol/L (98-107); SODIUM 143 mmol/L (136-145)
[2017-12-16 08:55] LABS: ANION GAP 11 (8-16); BLOOD UREA NITROGEN 12 mg/dL (7-18); CALCIUM 8.3 mg/dL (8.5-10.1); CO2 25 mmol/L (21-32); CREATININE 0.9 mg/dL (0.7-1.3); GLUCOSE,RANDOM 176 mg/dL (74-106)
[2017-12-16] MEDS: TAMSULOSIN HCL 0.4 MG CAP.ER.24H (FP) PO SCH (09:18)
[2017-12-16] MEDS: CEFTRIAXONE 2 GM in DEXTROSE 5%-WATER - 100 ML IVPB SCH (09:19)
--- NOTE | 2017-12-16 13:39 | PN ---
Teaching Attending Note Name of Resident: Herrera Campos ATTENDING PHYSICIAN STATEMENT I saw and evaluated the patient. I reviewed the resident's note and discussed the case with the resident. I agree with the resident's findings and plan as documented. SUBJECTIVE: No fever or chills, has no abd pain. no dysuria. 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 passed a stone yesterday. sx are better and exam has improved . cx with bueno-sensitive E coli. US with no hydro can switch to po , ABx. d/w felipe Murphy ill do bactrim BID x 4-6 weeks. will give a script for 2 weeks with blood work q week . if tolerated the treatment will be extended with same medication otherwise it has to be changed. 2- HTN: on HCTZ /losartan. with his h/o BPH and frequent urination , forcing him to avoid fluid intake, and now a kidney stone , will avoid HCTZ and give prescription for losartan only . 3- DM : cont metformin and glipizide at dc 4- H/o MANAGER INSPECTION shunt , - f/u with his neuro surgeon as out pt for possible overshunting on CT scan 5- BPH : cont finasteride and flomax at dc dc to home . at bed side .
--- NOTE | 2017-12-16 13:41 | PN ---
Progress Note (short form) - Note Progress Note: ID consult dictated imp/reccd ecoli UTI 3rd episode of UTI since September bueno sensitive had sensation of discomfort when sitting in a chair that has resolve may have passed a stone too! hospitalist reports tender prostate on exam recent addition of proscar to his flomax Ecoi UTI suspect prostatitis renal sonogram-to r/o hydronephrosis po bactrim for prostatis- ideally 4 to 6 weeks would continue 2 weeks to f/u with PMD and urologist who can lengthen duration of treatment as needed needs labs followed cbc/bmp while on bactrim d/w hospitalst
[2017-12-16 14:00] VITALS: BP 115/51; PULSE 69; TEMP 98.9
--- NOTE | 2017-12-16 15:45 | CONS ---
INFECTIOUS DISEASE CONSULTATION DATE OF CONSULTATION: DATE OF DICTATION: 12/16/2017 Requested by the hospitalist service. This is a 67-year-old man with a history of a cerebral aneurysm in 2004, status post clip and shunt. He has a history of BPH on Flomax for over a year. He is followed at the [facility]. He recently had an episode of difficulty urinating. He went to the [facility], where he was given IV antibiotics and discharged on oral antibiotics for 3 to 5 days. He continued to have symptoms. He then received a 10-day course of Macrobid. He was also started on Proscar at this time. He comes to the hospital on December 14 with complaint of vertigo. He was also noted to have suprapubic pain and frequency, but no fevers. He was found to have dysuria. On prostate exam, he was noted to have a tender, enlarged prostate. His UA was notable for 3+ leukocytes with 648 white cells. Urine culture grew an E coli. I am asked to see him to comment on duration of antibiotic treatment. Patient reports that he was having difficulty sitting in a chair and this has resolved completely. He is not having any trouble moving his bowels. He does note as well that he may have passed a stone. He gives a remote history of nephrolithiasis in the past. PAST MEDICAL HISTORY: Notable for history of ruptured cerebral aneurysm; [id number] diabetes; hypertension; BPH. 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 ALLERGIES: He has no known drug allergies. HOME MEDICATIONS: Include losartan, hydrochlorothiazide, vitamin D, Flomax, Glucophage, Proscar, omeprazole, glipizide, and Zocor. He is followed by a Dr. Delma Rivera at the [facility]. He states, as well, he has seen a urologist once and has a followup appointment in December. He has never had a prostate biopsy in the past. SOCIAL HISTORY: He lives at home with his . No history of cigarette, alcohol or substance use. REVIEW OF SYSTEMS: Currently, he feels well. His suprapubic discomfort has resolved. His perineal discomfort has resolved and he feels well. PHYSICAL EXAMINATION: Vital signs: Temp is 98.5, pulse is 75, blood pressure 127/61, respiratory rate is 18. HEENT: He is normocephalic. His eyes are anicteric. Neck: Supple. Lungs: Clear to auscultation. Heart: Regular rate and rhythm. Abdomen: Soft. Nontender. He has no suprapubic or CVA tenderness. Extremities: Without edema. White count is 8.1, hemoglobin 9.9, platelets are 401. BUN and creatinine are 12 and 0.9. His UA has 3+ leukocytes with 648 white cells. Blood cultures are negative. Urine culture is growing an E coli that is pansensitive. He had a bladder sonogram that shows an enlarged prostate with no discrete collection. In summary, this is a 67-year-old man with E coli UTI. I suspect acute prostatitis, based on his difficulty sitting and the tender prostate exam per the hospitalist. Would obtain a renal ultrasound just to rule out hydronephrosis. If indeed he did pass a stone, I would switch him to oral Bactrim for 2 weeks, to follow up with his PMD and urologist who can lengthen duration of treatment as needed. Ideally, he should have 4 to 6 weeks of treatment, but he needs to be followed carefully with CBC and BMP while on long-term Bactrim and this should be done by his primary care doctor. The case was discussed at length with the hospitalist. LOWELL AWAD M.D. [id number]
--- NOTE | 2017-12-17 15:58 | DS ---
Physical Exam: SUBJECTIVE: Patient seen and examined at bedside. Patient feels and looks much better today. He states that his urinary symptoms have resolved. PHYSICAL EXAM GENERAL: The patient is awake, alert, and fully oriented, in no acute distress. NECK: Trachea midline, full range of motion, supple. LUNGS: Breath sounds equal, clear to auscultation bilaterally, no wheezes, no crackles, no accessory muscle use. HEART: Regular rate and rhythm, S1, S2 without murmur, rub or gallop. ABDOMEN: Soft, nontender, nondistended, normoactive bowel sounds, no guarding, no rebound, no hepatosplenomegaly, no masses. EXTREMITIES: 2+ pulses, warm, well-perfused, no edema. NEUROLOGICAL: Cranial nerves II through X grossly intact. Normal speech, gait not observed. SKIN: Warm, dry, normal turgor, no rashes or lesions noted. 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 The patient stated that he had had urinary symptoms of urgency and hesitancy for approximately one month prior to admission. He was treated with inpatient IV antibiotics at the [facility], then with 5 days of outpatient antibiotics by his primary care physician. After the outpatient course, he continued to experience symptoms and returned to his doctor, receiving a 10 day course of a different antibiotic which he finished the prior to admission. The morning prior to admission he experienced an acute onset of dizziness, disequilibrium, sweating and shaking chills. He was helped to his bed by his , who called 911. The patient endorsed restricting his water intake to help treat his urinary symptoms as well as his nocturia. The patient denied chest pain, shortness of breath, fevers or sick contacts at the time. In he ED, he was found to have a UA w/ 3+ketones, 2+ blood , 3+ leukocyte esterase, +nitrite, 648 WBC and many bacteria. A rectal exam revealed an enlarged, smooth prostate which was tender to palpation. A bladder ultrasound revealed a markedly enlarged prostate and was negative for any collection or abscess. A CT of the head revealed no acute findings, but incidentally noted decreased ventricle volume concerning for possible overshunting into the abdomen. The patient was admitted for further management of a urinary tract infection. He was treated with Ceftriaxone and Flomax. His diabetes was managed with a Novolog sliding scale. The remainder of his chronic medical problems were managed with his home medications. The patient's symptoms improved with this treatment and he was discharged home with Bactrum DS BID for an additional 28 days. He was advised to obtain weekly blood tests while on Bactrim. He was given a prescription for his first blood work with his discharge papers and advised to follow up with his PCP, Dr. Rivera to obtain the remaining blood tests. His hydrochlorothiazide was stopped He was also advised to follow up with his urologist regarding his prostate and his neurosurgeon regarding the possible overshunting in his brain. Date of Discharge: 12/16/17 Minutes to complete discharge: 56 Discharge Summary Reason For Visit: UTI Condition: Improved - Instructions Diet, Activity, Other Instructions: You were admitted for the treatment of your urinary tract infection. You will need to take an antibiotic for a total of four to six weeks. We are prescribing you an antibiotic called bactrim. You should take 1 tablet of this medication twice per day. While on this medication we want to monitor your kidney function and response to infection. You can follow up with your primary Dr. Rivera or our [facility] resident clinic (referral provided) with in one week for blood work. We have provided you with a script to get your blood work done. You will need to get blood work once a week while on antibiotics. If your kidney function is normal, you can continue taking the antibiotic Bactrim, if your kidney functioning levels are abnormal we will switch your antibiotic to another one. In any case you will need a total of four to six weeks of antibiotic medication. After 2 weeks, the antibiotics need to be renewed by your PCP , to continue bactrim or switch to another agent. We would also like you to follow up with your neurosurgeon regarding the shunt. Our head imaging, CT scan indicated possible overshunting. You may resume taking your home medications starting tomorrow. Be advised that we have stopped your hydrochlorothiazide medication, ase these can cause kidney stones. We will prescribe your losartan as a separate medication. Please take as prescribed. If you begin to experience chest pain, shortness of breath, worsening dizziness or if any of your symptoms become worse, please call your doctor or return to the emergency department. Please take discharge paperwork with you to all your appointments. Referrals: Farhan Mooney MD [Staff Physician] - 1 Week Herrera Campos RES [Resident] - Hien Orlando MD [Staff Physician] - Rashel Man MD [Staff Physician] - 1 Week Disposition: HOME - Home Medications Comprehensive Discharge Medication List: Ambulatory Orders Cholecalciferol (Vitamin D3) [Vitamin D3 -] 1,000 unit PO DAILY 12/15/17 Finasteride [Proscar -] 5 mg PO DAILY 12/15/17 Glipizide 10 mg PO BID 12/15/17 Metformin HCl [Glucophage] 1,000 mg PO BID 12/15/17 Omeprazole 20 mg PO DAILY 12/15/17 Simvastatin [Zocor] 80 mg PO HS 12/15/17 Tamsulosin HCl [Flomax -] 0.4 mg PO DAILY 12/15/17 Losartan Potassium 100 mg PO DAILY #30 tablet 12/16/17 Miscellaneous Drug Not In Syst [Outpatient Lab Test] 1 each ASDIR #1 misc Sulfamethoxazole/Trimethoprim [Bactrim Ds -] 1 tab PO BID #56 tablet 12/16/17 Problem List - Problems (1) Diabetes mellitus Code(s): E11.9 - TYPE 2 DIABETES MELLITUS WITHOUT COMPLICATIONS Qualifiers: Diabetes mellitus type: type 2 Diabetes mellitus complication status: without complication (2) BPH (benign prostatic hyperplasia) Code(s): N40.0 - BENIGN PROSTATIC HYPERPLASIA WITHOUT LOWER URINRY TRACT SYMP Qualifiers: Lower urinary tract symptom presence: symptoms present Lower urinary tract symptom detail: urinary frequency Qualified Code(s): N40.1 - Benign prostatic hyperplasia with lower urinary tract symptoms; R35.0 - Frequency of micturition ; R35.0 - Frequency of micturition (3) Complicated UTI (urinary tract infection) Code(s): N39.0 - URINARY TRACT INFECTION, SITE NOT SPECIFIED (4) HTN (hypertension) Code(s): I10 - ESSENTIAL (PRIMARY) HYPERTENSION This patient is new to me today: No Emergency Visit: Yes ED Registration Date: 12/14/17 Care time: The patient presented to the Emergency Department on the above date and was hospitalized for further evaluation of their emergent condition. Critical Care patient: No - Discharge Referral Referred to [facility] No
== END 2017-12-16 18:00 | disposition home or self-care (01) | DRG 690 ==
LOC: JER 09:49 → JERBED 13:02 → OBSVTOIN 14:44 → J6S 14:55
PROVIDERS: ADMIT Internal Medicine; ATTEND Internal Medicine
DX: N39.0 Urinary tract infection, site not specified (principal); B96.29 Other Escherichia coli [E. coli] as the cause of diseases classified elsewhere; E11.9 Type 2 diabetes mellitus without complications; I10 Essential (primary) hypertension; I95.1 Orthostatic hypotension; N41.9 Inflammatory disease of prostate, unspecified; N40.0 Benign prostatic hyperplasia without lower urinary tract symptoms; Z79.84 Long term (current) use of oral hypoglycemic drugs
CPT/HCPCS: 36415; 70450-TC; 71045-TC-FY; 76775-TC; 76856-TC; 80048; 80053; 81003; 81015; 82550; 82962; 83605; 83690; 83735; 84100; 84484; 85025; 87040; 87086; 87186; 93005; 93010; 97116-GP; 97161-GP; 99285-25; G0378; J1644; J7030

== ENCOUNTER 2018-02-19 11:18 | Emergency (ER) | payer BC, OTHER ==
[2018-02-19 11:48] LABS: BASO % 0.5 % (0-2.0); EOS % 0.9 % (0-4.5); HEMATOCRIT 38.1 % (35.4-49); HEMOGLOBIN 12.5 GM/dL (11.7-16.9); LYMPH % 15.9 % (8-40); MCH 28.1 pg (25.7-33.7); MCHC 32.8 g/dl (32.0-35.9); MEAN CELL VOLUME 85.7 fl (80-96); MEAN PLT VOLUME 8.2 fl (7.5-11.1); MONO % 5.2 % (3.8-10.2); NEUT % 77.5 % (42.8-82.8); PLATELET COUNT 248 K/MM3 (134-434); RBC 4.45 M/mm3 (4.00-5.60); RDW 13.4 % (11.9-15.9); WHITE BLOOD COUNT 5.6 K/mm3 (4.0-10.0)
[2018-02-19 11:53] VITALS: BMI 27.2
[2018-02-19 11:53] LABS: URINE APPEARANCE CLEAR; URINE BILIRUBIN NEGATIVE (<2.0 mg/dL); URINE COLOR LTYELLOW; URINE GLUCOSE (UA) 1+ (NEGATIVE); URINE KETONE TRACE (NEGATIVE); URINE LEUK ESTERASE NEGATIVE (NEGATIVE); URINE NITRITE NEGATIVE (NEGATIVE); URINE UROBILINOGEN NEGATIVE mg/dL (0.2-1.0)
[2018-02-19 12:02] LABS: URINE PROTEIN 3+ (NEGATIVE)
[2018-02-19 12:08] LABS: INR 0.88 (0.82-1.09)
[2018-02-19 12:10] LABS: ACTIVATED PTT 23.7 SECONDS (26.9-34.4)
[2018-02-19 12:14] LABS: COCAINE, UR NEGATIVE ng/ml (CUTOFF=300); METHADONE, UR NEGATIVE ng/ml (CUTOFF=300); OPIATES, URI NEGATIVE ng/ml (CUTOFF=300); PHENCYCLIDINE,URINE NEGATIVE ng/ml (CUTOFF=25); URINE AMPHETAMINES NEGATIVE ng/ml (CUTOFF=500); URINE BARBITURATES NEGATIVE ng/ml (CUTOFF=200); URINE BENZODIAZEPINES POSITIVE ng/ml (CUTOFF=200)
[2018-02-19 12:18] LABS: ALK PHOS 66 U/L (45-117); ANION GAP 14 (8-16); BILIRUBIN,TOTAL 0.4 mg/dL (0.2-1.0); BLOOD UREA NITROGEN 16 mg/dL (7-18); CALCIUM 8.1 mg/dL (8.5-10.1); CHLORIDE 108 mmol/L (98-107); CO2 17 mmol/L (21-32); CREATININE 1.2 mg/dL (0.7-1.3); GLUCOSE,RANDOM 233 mg/dL (74-106); POTASSIUM 4.2 mmol/L (3.5-5.1); SGOT/AST 13 U/L (15-37); SGPT/ALT 25 U/L (12-78); SODIUM 139 mmol/L (136-145); TOT PROT 7.1 g/dl (6.4-8.2)
--- NOTE | 2018-02-19 12:23 | PDOC ---
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 Patient and daughter at bedside to assist in report. State that patient was in normal state of health this morning. Pt. woke up at 0500, , made breakfast, read newspaper and went back to sleep around 0900 consistent with daily routine. states that patient became rigid and started exhibiting what was described as tonic-clonic convulsions for 5-10 minutes, while laying in bed. Patient with tongue biting and blood draining from mouth. attempted tongue sweep with her hand and sustained bite wound to finger. Laid patient on lateral decubitus side and patient convulsions improved. Patinet became acutely agitated on EMS arrival and received 10 mg Versed. 90% O2 RA, improved to 99% with NC. Family denies hearing complaints from pt. about F/C, N/V, CP, SOB, abdominal pain, diarrhea, constipation, urinary complaints, weakness, lightheadedness, sensory changes. PMHx: as noted above. Dr. Story Neurosurgery performed shunt placement 14 years ago. ROS: as noted above SHx: Family denies Etoh, tobacco, or IVDA. Past History - Past Medical History Allergies/Adverse Reactions: Allergies Allergy/AdvReac Type Severity Reaction Status Date / Time fosinopril AdvReac Verified 12/15/17 14:44 lisinopril AdvReac Verified 12/15/17 14:44 Home Medications: Ambulatory Orders Cholecalciferol (Vitamin D3) [Vitamin D3 -] 1,000 unit PO DAILY 12/15/17 Finasteride [Proscar -] 5 mg PO DAILY 12/15/17 Glipizide 10 mg PO BID 12/15/17 Metformin HCl [Glucophage] 1,000 mg PO BID 12/15/17 Simvastatin [Zocor] 80 mg PO HS 12/15/17 Tamsulosin HCl [Flomax -] 0.4 mg PO DAILY 12/15/17 Losartan Potassium 100 mg PO DAILY #30 tablet 12/16/17 Sulfamethoxazole/Trimethoprim [Bactrim Ds -] 1 tab PO BID #56 tablet 12/16/17 L.acidoph,Paracasei, B.lactis [Probiotic] 1 each PO ASDIR 02/19/18 Multivit with Iron,Minerals [Complete Senior] 1 each PO DAILY 02/19/18 Tamsulosin HCl 0.4 mg PO DAILY 02/19/18 COPD: No Diabetes: Yes HTN: Yes - Surgical History Neurologic Surgery: Yes (s/p brain aneurysm 13yrs ago.SOFTWARE DEVELOPMENT INTERN shunt in left side.) - Suicide/Smoking/Psychosocial Hx Smoking History: Unknown if ever smoked Have you smoked in the past 12 months: No Information on smoking cessation initiated: No Hx Alcohol Use: No Drug/Substance Use Hx: No Substance Use Type: None Hx Substance Use Treatment: No Review of Systems - Review of Systems Comments:: 02/19/18 12:23 Patient cannot provide d/t AMS. *Physical Exam - Vital Signs Last Vital Signs Temp Pulse Resp BP Pulse Ox 98.7 F 110 H 16 110/65 100 02/19/18 11:47 02/19/18 11:47 02/19/18 11:47 02/19/18 11:47 02/19/18 11:47 - Physical Exam Comments: 02/19/18 12:24 GENERAL: Patient somnolent on physical exam, and disoriented to place and time. in no acute distress HEAD: No signs of trauma, normocephalic, atraumatic EYES: PERRLA, EOMI, sclera anicteric, conjunctiva clear ENT: Auricles normal inspection, hearing grossly normal, nares patent, oropharynx clear without exudates. Moist mucosa NECK: Normal ROM, supple, no lymphadenopathy, JVD, or masses LUNGS: No distress, speaks full sentences, clear to auscultation bilaterally HEART: Regular rate and rhythm, normal S1 and S2, no murmurs, rubs or gallops, peripheral pulses normal and equal bilaterally. ABDOMEN: Soft, nontender, normoactive bowel sounds. No guarding, no rebound. No masses EXTREMITIES : Normal inspection, Normal range of motion, no edema. No clubbing or cyanosis. NEUROLOGICAL: Cranial nerves II through XII grossly intact. no focal sensorimotor deficits SKIN: Warm, Dry, normal turgor, no rashes or lesions noted ED Treatment Course - LABORATORY CBC & Chemistry Diagram: 02/19/18 11:37 02/19/18 11:37 - ADDITIONAL ORDERS Additional order review: Laboratory Results 02/19/18 02/19/18 11:37 11:24 POC Glucometer [id number] Urine Color Ltyellow Urine Appearance Clear Urine pH 5.0 Ur Specific Gilliam 1.015 Urine Protein 3+ H Urine Glucose (UA) 1+ H Urine Ketones Trace H Urine Blood 2+ H Urine Nitrite Negative Urine Bilirubin Negative Urine Urobilinogen Negative Ur Leukocyte Esterase Negative 02/19/18 02/19/18 11:37 11:24 RBC 4.45 D MCV 85.7 MCHC 32.8 RDW 13.4 Neutrophils % 77.5 Lymphocytes % 15.9 D Monocytes % 5.2 Eosinophils % 0.9 Basophils % 0.5 POC Glucometer [id number] Medical Decision Making - Medical Decision Making 02/19/18 15:11 67 yo M with h/o DM, HTN, Brain Aneursym s/p rupture and repair and 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 VSS, AF. Will assess for shunt malfunction, electrolyte abnml, toxic or metabolic derangements,acid-base disturbances, or underlying infection. ED Course: 02/19/18 15:15 CBC: Unremarkable Lactic Acid: 10.2 02/19/18 15:16 UA: 2+, RBC 11 02/19/18 15:17 UDS: Positive Benzos 02/19/18 15:18 CTH: No evidence of intracranial hemorrhage, or mass effect. 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 Left frontal approach external ventricular drainage catheter. 02/19/18 15:20 CXR: Left shunt catheter. 02/19/18 15:51 Patient unsure if coil in head compatible with MRI machine. Dr. Moran Neurosurgery not familiar with patient and is not initial surgeon who placed shunt. Patient to be transfered out to Dr. Scott Neurosurgeon. ED to ED transfer. *DC/Admit/Observation/Transfer Diagnosis at time of Disposition: Seizure Shunt malfunction Qualifiers: Encounter type: initial encounter Qualified Code(s): T85.618A - Breakdown ( mechanical) of other specified internal prosthetic devices, implants and grafts , initial encounter - Discharge Dispostion Disposition: TRANSFER ACUTE CARE/OTHER HOSP Condition at time of disposition: Stable Decision to Admit order: No - Referrals - Patient Instructions - Post Discharge Activity
[2018-02-19 12:39] LABS: PLATELET ESTIMATE ADEQUATE
--- NOTE | 2018-02-19 13:02 | PDOC ---
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) presents to the ED with a first time seizure. Pt currently confused and post ictal but report he had a 5 minute seizure with tongue biting on his bed. Pt was agitated and combative upon EMS arrival and was given versed 10mg. Pt's son reports that his neurosurgeon stated that his OIL WELL SERVICE OPERATOR HELPER shunt was recently "over-shunting" and the patient had an appointment next week for follow up to evaluate the shunt. Pt was in his USOH prior to the seizure, denies fevers, chills, chest pain, shortness of breath, abdominal pain, focal weakness/numbness, rashes, neck stiffness, headaches. - Physicial Exam PE: 02/19/18 13:09 GENERAL: lethargic but arousable, in no acute distress HEAD: No signs of trauma EYES: PERRLA, EOMI, sclera anicteric, conjunctiva clear ENT: Nares patent, oropharynx clear without exudates. Moist mucosa. +hemostatic tongue lac NECK: Normal ROM, supple, no lymphadenopathy, JVD, or masses LUNGS: Breath sounds equal, clear to auscultation bilaterally. No wheezes, and no crackles HEART: tachy but regular, normal S1 and S2, no murmurs, rubs or gallops ABDOMEN: Soft, nontender, normoactive bowel sounds. No guarding, no rebound. No masses EXTREMITIES: Normal range of motion, no edema. No clubbing or cyanosis. No cords, erythema, or tenderness NEUROLOGICAL: Normal speech, cranial nerves intact, negative pronator drift, 5/ 5 strength in all 4 extremities, normal sensation to light touch in all 4 extremities, normal cerebellar exam, normal reflexes and tone, gait deferred SKIN: Warm, Dry, normal turgor, no rashes or lesions noted. 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 Vitals remarkable for tachycardia to the 120s. Concern for OIL WELL SERVICE OPERATOR HELPER shunt malfunction, and thus will obtain shunt series. Will also obtain labs and discuss with the patient's neurosurgeon at [facility].
--- NOTE | 2018-02-19 13:41 | EKG ---
Test Reason : Blood Pressure : / mmHG Vent. Rate : 107 BPM Atrial Rate : 107 BPM P-R Int : 188 ms QRS Dur : 098 ms QT Int : 340 ms P-R-T Axes : 025 011 038 degrees QTc Int : 453 ms SINUS TACHYCARDIA OTHERWISE NORMAL ECG WHEN COMPARED WITH ECG OF 14-DEC-2017 10:02, VENT. RATE HAS INCREASED BY 51 BPM NONSPECIFIC T WAVE ABNORMALITY NO LONGER EVIDENT IN ANTERIOR LEADS QT HAS LENGTHENED CLINICAL CORRELATION IS RECOMMENDED Confirmed by LIZBETH MILLER MD ([id number]) on 02/19/2018 1:41:41 PM Referred By: Confirmed By:LIZBETH MILLER MD
[2018-02-19] MEDS ORDERED: SODIUM CHLORIDE 1,000 ML IV STA (13:47)
[2018-02-19] MEDS ORDERED: levETIRAcetam 500 MG/5 ML INJECTION VIAL IVPB ONE ×2 (15:51→16:04)
[2018-02-19 16:01] VITALS: BP 147/61; PULSE 83; TEMP 97.8
== END 2018-02-19 16:53 | disposition short-term general hospital (02) ==
LOC: JER 11:18
PROC: 3E0337Z Introduction of Electrolytic and Water Balance Substance into Peripheral Vein, Percutaneous Approach (ICD-10-PCS; principal; 2018-02-19)
PROC: 3E033GC Introduction of Other Therapeutic Substance into Peripheral Vein, Percutaneous Approach (ICD-10-PCS; 2018-02-19)
DX: T85.618A Breakdown (mechanical) of other specified internal prosthetic devices, implants and grafts, initial encounter (principal); Z98.2 Presence of cerebrospinal fluid drainage device; I10 Essential (primary) hypertension; E11.9 Type 2 diabetes mellitus without complications; Z79.84 Long term (current) use of oral hypoglycemic drugs; Z88.8 Allergy status to other drugs, medicaments and biological substances; Z86.79 Personal history of other diseases of the circulatory system
CPT/HCPCS: 36415; 70360-TC-FY; 70450-TC; 71045-TC-FY; 74018-TC-FY; 80053; 80307; 81003; 81015; 82962; 83605; 83735; 84443; 85025; 85610; 85730; 87086; 93005; 93010; 99284-25; J7030

== ENCOUNTER 2019-01-29 00:50 | Emergency (ER) | payer BC, OTHER ==
--- NOTE | 2019-01-29 01:12 | PDOC ---
History of Present Illness - General Chief Complaint: Seizure Stated Complaint: SEIZURE Time Seen by Provider: 01/29/19 01:11 History Source: Patient - History of Present Illness Initial Comments: 01/29/19 01:47 The patient is a 68 year old male with a PMH of NIDDM, HTN, Brain Aneursym s/p rupture and repair and SEWER CONNECTOR shunt, HLD and Seizure disorder presents to the ED s/ p unwitnessed seizure. @ bedside assists in history, states she heard patient banging on the lew around midnight. Patient was trying to walk to the bathroom and was confused. notes that patient had blood in his mouth. Patient thinks he hit his head. States he has not taken his seizure medication since Monday because he ran out of pills. Last seizure prior to this evening was 2017. Allergy: LUISA-I As per EMR, patient evaluated in our ED on 02/19 for new onset seizure. Patient transferred to [facility] for evaluation of SEWER CONNECTOR shunt malfunction. as concern for SEWER CONNECTOR shunt malfunction. 01/29/19 04:46 Past History - Past Medical History Allergies/Adverse Reactions: Allergies Allergy/AdvReac Type Severity Reaction Status Date / Time fosinopril AdvReac Verified 01/29/19 01:13 lisinopril AdvReac Verified 01/29/19 01:13 Home Medications: Ambulatory Orders Cholecalciferol (Vitamin D3) [Vitamin D3 -] 1,000 unit PO DAILY 12/15/17 Finasteride [Proscar -] 5 mg PO DAILY 12/15/17 Glipizide 10 mg PO BID 12/15/17 Metformin HCl [Glucophage] 1,000 mg PO BID 12/15/17 Simvastatin [Zocor] 80 mg PO HS 12/15/17 Tamsulosin HCl [Flomax -] 0.4 mg PO DAILY 12/15/17 Losartan Potassium 100 mg PO DAILY #30 tablet 12/16/17 Levetiracetam [Keppra] 750 mg PO BID 30 Days #60 tablet 01/29/19 COPD: No Diabetes: Yes HTN: Yes Psychiatric Problems: Yes - Surgical History Abdominal Surgery: No Appendectomy: No Gastric Stapling: No Lung Surgery: No Neurologic Surgery: Yes (s/p brain aneurysm 13yrs ago.SEWER CONNECTOR shunt in left side.) - Immunization History Immunization Up to Date: No - Suicide/Smoking/Psychosocial Hx Smoking History: Unknown if ever smoked Have you smoked in the past 12 months: No Hx Alcohol Use: No Drug/Substance Use Hx: No Substance Use Type: None Hx Substance Use Treatment: No Review of Systems - Review of Systems Constitutional: No: Fever, Night Sweats HEENTM: No: Blurred Vision, Double Vision Respiratory: No: Cough, Shortness of Breath Cardiac (ROS): No: Chest Pain, Lightheadedness, Palpitations, Syncope ABD/GI: No: Constipated, Diarrhea, Nausea, Vomiting *Physical Exam - Physical Exam Comments: 01/29/19 04:15 Awake, verbal, moves all 4 extremities, pelvis stable Midline tongue laceration- healing No C-spine or L/T/S midline tenderness Neck supple, full ROM CV: S1, S2, no M/R/G Respiratory: CLTA B/L Extremity: no edema, 2+ DP pulses B/L Neuro: A&O x3 no focal neurologic deficit noted on exam ED Treatment Course - LABORATORY CBC & Chemistry Diagram: 01/29/19 01:22 01/29/19 01:22 Medical Decision Making - Medical Decision Making 01/29/19 01:47 68 year old male s/p unwitnessed seizure. H/o medication non-adherence VS unremarkable. Will obtain Head CT to r/o acute bleed. Keppra level. 01/29/19 02:51 No leukocytosis Hb stable @ 11 CMP unremarkable Will give patient loading dose of Keppra. Head CT pending 01/29/19 04:09 My read of Head CT shows no acute hemorrhage 01/29/19 04:[address] read as small blood in Rene fissure SEWER CONNECTOR shunt, aneursym clips, no evidence of acute hemorrhage 01/29/19 04:30 Call placed to [facility], case d/w Dr. Fermin, reading of blood in Rene fissure is transmission error, CT shows prominent Rene fissure. Will add addendum. 01/29/19 04:[address] scan read. 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 I answered all of the patient's questions. The patient was satisfied with the care received and felt comfortable with the discharge plan and treatment plan. The patient will return to the Emergency Department with any new, persistent or worsening symptoms. *DC/Admit/Observation/Transfer Diagnosis at time of Disposition: Seizure - Discharge Dispostion Disposition: HOME Condition at time of disposition: Good Decision to Admit order: No - Prescriptions Prescriptions: Levetiracetam [Keppra] 750 mg PO BID 30 Days #60 tablet - Referrals Referrals: Herrera Campos RES [Primary Care Provider] - - Patient Instructions Printed Discharge Instructions: DI for Seizure Disorder -- Adult Additional Instructions: You were evaluated today for your seizure. Your cat scan and your labs showed no concerning findings. At this time you are safe for discharge home. Make an appointment to follow-up with your doctor at the [facility] as soon as possible. We have sent a prescription to your pharmacy for a 30 day supply of your seizure medication. Please take as directed. Return to the Emergency Department for any new/worsening/concerning symptoms. - Post Discharge Activity
[2019-01-29 01:13] VITALS: TEMP 98.9; BMI 31.0
--- NOTE | 2019-01-29 01:17 | PDOC ---
Attending Attestation - Resident Resident Name: Gladys Rider - ED Attending Attestation I have performed the following: I have examined & evaluated the patient, The case was reviewed & discussed with the resident, I agree w/resident's findings & plan - HPI HPI: 01/29/19 01:55 68-year-old male with history of seizure disorder status post witnessed seizure by his family. Patient admits to noncompliance with his R 2-3 days because he ran out and [facility] He denies additional complaints at this time. He did sustain a laceration to his tongue. - Physicial Exam PE: 01/29/19 01:56 Agree with resident's exam - Medical Decision Making 01/29/19 01:56 68-year-old male status post seizure CT scan of the brain due to trauma sustained during seizure activity 1 g IV prior to discharge with a 2 week refill Plan for discharge pending results, patient will follow up at the [facility]
[2019-01-29 01:34] LABS: BASO % 0.8 % (0-2.0); EOS % 1.9 % (0-4.5); HEMATOCRIT 34.8 % (35.4-49); HEMOGLOBIN 11.6 GM/dL (11.7-16.9); LYMPH % 12.9 % (8-40); MCH 28.3 pg (25.7-33.7); MCHC 33.4 g/dl (32.0-35.9); MEAN CELL VOLUME 84.7 fl (80-96); MEAN PLT VOLUME 7.8 fl (7.5-11.1); MONO % 6.6 % (3.8-10.2); NEUT % 77.8 % (42.8-82.8); PLATELET COUNT 255 K/MM3 (134-434); RBC 4.11 M/mm3 (4.00-5.60); RDW 12.9 % (11.9-15.9); WHITE BLOOD COUNT 5.4 K/mm3 (4.0-10.0)
[2019-01-29 02:10] LABS: ALBUMIN 3.6 g/dl (3.4-5.0); ALK PHOS 73 U/L (45-117); ANION GAP 9 MMOL/L (8-16); BILIRUBIN,TOTAL 0.3 mg/dL (0.2-1); BLOOD UREA NITROGEN 10 mg/dL (7-18); CALCIUM 8.4 mg/dL (8.5-10.1); CHLORIDE 106 mmol/L (98-107); CO2 24 mmol/L (21-32); GLUCOSE,RANDOM 195 mg/dL (74-106); POTASSIUM 3.9 mmol/L (3.5-5.1); SGOT/AST 13 U/L (15-37); SGPT/ALT 26 U/L (13-61); SODIUM 139 mmol/L (136-145); TOT PROT 6.5 g/dl (6.4-8.2)
[2019-01-29] MEDS ORDERED: levETIRAcetam 500 MG TABLET (FP) PO ONE ×2 (02:23→02:31)
[2019-01-29 05:16] VITALS: BP 146/69; PULSE 80
--- NOTE | 2019-01-29 11:37 | EKG ---
Test Reason : Blood Pressure : / mmHG Vent. Rate : 081 BPM Atrial Rate : 081 BPM P-R Int : 198 ms QRS Dur : 102 ms QT Int : 364 ms P-R-T Axes : 029 002 018 degrees QTc Int : 422 ms NORMAL SINUS RHYTHM POSSIBLE INFERIOR INFARCT , AGE UNDETERMINED ABNORMAL ECG WHEN COMPARED WITH ECG OF 19-FEB-2018 11:22, NO SIGNIFICANT CHANGE WAS FOUND Confirmed by Milton Martinez MD ([id number]) on 01/29/2019 11:37:07 AM Referred By: Confirmed By:Milton Martinez MD
== END 2019-01-29 05:15 | disposition home or self-care (01) ==
LOC: JER 00:50
DX: R56.9 Unspecified convulsions (principal); Z91.14 Patient's other noncompliance with medication regimen; I10 Essential (primary) hypertension; E78.00 Pure hypercholesterolemia, unspecified; E11.9 Type 2 diabetes mellitus without complications; Z79.84 Long term (current) use of oral hypoglycemic drugs; Z86.79 Personal history of other diseases of the circulatory system; Z98.2 Presence of cerebrospinal fluid drainage device
CPT/HCPCS: 36415; 70450-TC; 71045-TC-FY; 80053; 80177; 82550; 84484; 85025; 93005; 93010; 99283-25